=== PATIENT | male | born 2000 | race Two or more races ===

== ENCOUNTER 2024-06-02 13:06 | Emergency (ER) | payer MEDICAID, SELFPAY ==
[2024-06-02 13:07] VITALS: BMI 39.0
[2024-06-02 13:37] VITALS: BP 172/102; PULSE 98; RESP 18; TEMP 36.8; O2SAT 99
--- NOTE | 2024-06-02 13:38 | XR_ITS ---
Examination: Abdomen sonogram, Limited Date and time of exam: June 02, 2024, 1353 hours INDICATIONS: Onset upper abdominal pain beginning 6 hours ago Technique: Real-time mercedes scale transabdominal sonographic images of the upper abdomen obtained. Findings: Negative for gallstones Normal gallbladder wall 0.2 cm Common bile duct 0.3 cm Pancreatic head 2.9 cm Hepatomegaly 21 cm fatty infiltration Normal hepatopedal portal venous flow. Patent IVC IMPRESSION: Negative for cholelithiasis, negative for cholecystitis Normal common bile duct Moderate hepatomegaly fatty liver
[2024-06-02 14:12] LABS: Basophils % (Auto) 0 % (0-2.5); Eosinophils # (Auto) 0.2 Thou/mm3 (0.0-0.5); Eosinophils % (Auto) 2 % (0-10); Hematocrit 45.3 % (41.0-53.0); Hemoglobin 17.1 g/dL (13.5-16.0); Immature Granulocytes % (Auto) 1 % (0-0); Immature Granulocytes Auto 0.09 Thou/mm3 (0.00-0.00); Lymphocytes # (Auto) 2.7 Thou/mm3 (1.0-4.8); Lymphocytes % (Auto) 20 % (10-50); Mean Corpuscular HGB Conc 37.7 g/dl (31.0-37.0); Mean Corpuscular Hemoglobin 31.1 pg (25.0-35.0); Mean Corpuscular Volume 83 fL (80-100); Monocytes % (Auto) 7 % (0-12); Neutrophils # (Auto) 9.8 Thou/mm3 (1.8-7.7); Neutrophils % (Auto) 71 % (37-80); Nucleated Red Blood Cell % 0 /100 WBC (0); Platelet Count 274 Thou/mm3 (140-440); RDW Standard Deviation 36.6 fL (35.1-43.9); Red Blood Count 5.49 Miln/mm3 (4.50-5.90); White Blood Count 13.9 Thou/mm3 (3.8-10.6)
[2024-06-02 14:45] LABS: Alanine Aminotransferase 41 U/L (10-49); Albumin, Serum 4.1 gm/dL (3.5-5.0); Alkaline Phosphatase 109 U/L (46-116); Anion Gap 8 (7-16); Aspartate Amino Transferase 53 U/L (0-34); BUN/Creatinine Ratio 8 Ratio (12-20); Bilirubin,Total 0.6 mg/dL (0.3-1.2); Blood Urea Nitrogen 9 mg/dL (9-23); Carbon Dioxide 25.2 mMol/L (20.0-31.0); Chloride 94 mMol/L (98-107); Creatinine (Component) 1.1 mg/dL (0.6-1.3); Estimated Creatinine Clearance 139.4 mL/min (>60); Globulin 2.1 gm/dL (2.3-3.5); Lipase 138 U/L (12-53); Osmolality,Calculated 277 (275-295); Potassium 4.7 mMol/L (3.4-5.1); Sodium 127 mMol/L (136-145); Total Protein 6.2 gm/dL (5.7-8.2); eGFR > 60 See Note
[2024-06-02 14:46] LABS: Collection Type, Urine Clean Catch
[2024-06-02 14:48] LABS: Glucose 526 mg/dL (74-106)
--- NOTE | 2024-06-02 14:54 | PC.NURSE ---
CALL FROM [facility] IN LAB W/ A CRITICAL GLUCOSE OF 526. PROVIDER INFORMED.
--- NOTE | 2024-06-02 14:57 | PD.EDRME ---
Rapid Medical Screening Exam RME Arrival date/time: 06/02/24 13:06 23-year-old male presents emergency department today for complaints of upper abdominal pain Chief Complaint: Abdominal Pain Time Seen by Provider: 06/02/24 13:18 Vital signs: Vital Signs Temperature 98.3 F 06/02/24 13:37 Pulse Rate 98 06/02/24 13:37 Respiratory Rate 18 06/02/24 13:37 Blood Pressure 172/102 H 06/02/24 13:37 Pulse Oximetry (%) 99 06/02/24 13:37 Oxygen Delivery Method Room Air 06/02/24 13:37
[2024-06-02 15:00] LABS: Bilirubin,Urine Negative (Negative); Blood,Urine Negative (Negative); Budding Yeast,Urine Present; Clarity,Urine Clear (Clear/Hazy); Color,Urine Lt-Yellow (Lt Yel-Yel); Culture Indicated,Urine Not Indicated; Glucose, Urine 4+ (Negative); Hyphae Yeast Present; Ketones,Urine Negative (Negative); Nitrite,Urine Negative (Negative); PH,Urine 6.5 (5.0-7.0); Protein,Urine 2+ (Neg - Trace); RBC,Urine 2 /hpf (0-3); Specific Gravity,Urine 1.038 (1.001-1.035); Squamous Epithelial Cell,Urine 1 /hpf (0-5); Urobilinogen,Urine Negative mg/dL (0.0-1.0); WBC,Urine 1 /hpf (0-5)
[2024-06-02 15:01] LABS: Leukocyte Esterase,Urine Negative (Negative)
--- NOTE | 2024-06-02 16:18 | PD.EDRME ---
Rapid Medical Screening Exam RME Arrival date/time: 06/02/24 13:06 06/02/24 13:06 23-year-old male presents emergency department today for complaints of upper abdominal pain Chief Complaint: Abdominal Pain Time Seen by Provider: 06/02/24 13:18 Vital signs: Vital Signs Temperature 98.3 F 06/02/24 13:37 Pulse Rate 98 06/02/24 13:37 Respiratory Rate 18 06/02/24 13:37 Blood Pressure 172/102 H 06/02/24 13:37 Pulse Oximetry (%) 99 06/02/24 13:37 Oxygen Delivery Method Room Air 06/02/24 13:37 RME Narrative: 06/02/24 13:06 23-year-old male presents emergency department today for complaints of upper abdominal pain
[2024-06-02] MEDS: SODIUM CHLORIDE 0.9% 1000 ML 1,000 ML 999 ML IV ×2 (16:24)
--- NOTE | 2024-06-02 16:26 | PD.EDABDPN ---
ED Abdominal Pain RME/HPI General Chief Complaint: Abdominal Pain Stated complaint: UPPER ABD PAIN SINCE 8AM TODAY Time seen by provider: 06/02/24 13:18 Arrival date/time: 06/02/24 13:06 RME / HPI RME / HPI narrative: 06/02/24 13:06 23-year-old male presents emergency department today for complaints of upper abdominal pain DR. BASHIR MAIN ED EVALUATION: 23 year old male with past medical history significant for diabetes, noncompliance presents to the Emergency Department accompanied by his girlfriend with complaint of upper abdominal pain with radiation to bilateral sides/ flanks onset this morning. No nausea or vomiting. No other symptoms reported at this time. Patient also has elevated blood glucose here and mentioned he has been noncompliant with his diabetic medication because its $600+ and he cannot afford it. Related Data Previous Rx's ?Medication ?Instructions ?Recorded albuterol sulfate 90 mcg/actuation 2 puff inhalation QID PRN 03/03/19 aerosol inhaler shortness of breath or wheezing #18 grams cetirizine 10 mg capsule (Zyrtec) 10 mg PO QDAY PRN allergy symptoms 03/03/19 #30 caps sodium chloride 0.65 % nasal spray 2 spray intranasal QID #60 mL 03/03/19 aerosol (Saline Nasal) albuterol sulfate 90 mcg/actuation 2 puff inhalation QID #18 grams 04/22/19 aerosol inhaler cetirizine 10 mg tablet (Zyrtec) 10 mg PO QDAY #30 tabs 04/22/19 sodium chloride 0.65 % nasal spray 2 spray intranasal QID #60 mL 04/22/19 aerosol (Saline Nasal) ibuprofen 800 mg tablet 800 mg PO TID PRN pain #30 tabs 12/22/22 metformin 500 mg tablet 500 mg PO BID #60 tabs 06/02/24 Allergies Allergy/AdvReac Type Severity Reaction Status Date / Time No Known Allergies Allergy Verified 06/02/24 13:09 Review of Systems Review of Systems Systems Reviewed: All systems reviewed, normal except as documented Past Medical History Past Medical History ENDOCRINE: Positive Diabetes Mellitus Type 2 Social History SMOKING STATUS: Never smoker SUBSTANCE USE: does not use ALCOHOL: Never ED Exam Narrative Physical exam: GENERAL APPEARANCE: alert and oriented x 4, well-developed, well-nourished, no acute distress, obese VITALS: All vitals were reviewed and the pulse ox is 95% on room air, which is normal according to my interpretation. HEENT: Normocephalic, atraumatic; pupils equal, round, reactive to light; EOMI; mucous membranes pink, moist; oropharynx clear NECK: Supple LUNGS: CTABL; no wheezes, no rales, no rhonchi HEART: Regular rate, regular rhythm; normal S1, S2; no murmurs ABDOMEN: normal BS; there is mild epigastric tenderness but no guarding, no rebound; no masses, no organomegaly, no hernia BACK: no CVA tenderness EXTREMITIES: atraumatic; no edema NEUROLOGIC: awake; alert and oriented x4; cranial nerves II-XII grossly intact; no focal sensory or motor deficits PSYCHIATRIC: appropriate mood and affect SKIN: warm, dry, normal color; papular rash with central depression consistent with molluscum Course Quality Measures none Orders Category Date Time Status Bedside Blood Glucose NOW Care 06/02/24 17:03 Active Insert IV NOW Care 06/02/24 16:23 Active US gall bladder Stat Exams 06/02/24 13:38 Completed A1C [Glycohemoglobin w (eAG)] Stat Lab 06/02/24 14:03 Completed CBC Stat Lab 06/02/24 14:03 Completed Comprehensive Metabolic Panel Stat Lab 06/02/24 14:03 Completed Lipase Stat Lab 06/02/24 14:03 Completed UA, C/S IF [Urinalysis, C/S if Indicated] Stat Lab 06/02/24 14:30 Completed Insulin Regular Med 06/02/24 17:17 Discontinued 5 unit IV X1 ONE Sodium Chloride 0.9% 1000 ml [Ns] 1,000 ml Med 06/02/24 16:01 Discontinued IV 999 mls/hr Sodium Chloride 0.9% 1000 ml [Ns] 1,000 ml Med 06/02/24 16:04 Discontinued IV 999 mls/hr Vital Signs Vital signs: Vital Signs Temperature 98.3 F 06/02/24 13:37 Pulse Rate 98 06/02/24 13:37 Respiratory Rate 18 06/02/24 13:37 Blood Pressure 172/102 H 06/02/24 13:37 Pulse Oximetry (%) 99 06/02/24 13:37 Oxygen Delivery Method Room Air 06/02/24 13:37 Abdominal Pain MDM MDM Narrative MDM Narrative:: I, Emily Romano, araceli scribing for and in the presence of Dr. Bashir. Patient data External records reviewed:: [facility] previous records (Reviewed last ED visit dated 12/22/22, discharged with the following: Hand pain, right) Clinical information provided by:: patient Social determinants that could affect healthcare access:: none Patient has the following chronic illnesses:: diabetes, noncompliance How is presenting disease/condition affected by chronic disease/condition?: exacerbated by Evaluation data The following diagnostics were reviewed and interpreted by me:: lab results and radiology exam(s) Lab and/or radiology exams considered but not ordered:: none Interpretation Summary: Procedure(s): US gall bladder Accession Number(s): [id number] cc: Dre Pritchard PA-C; Aldo (GERRY),Eddie GARRETT; Torin Luna MD~ Examination: Abdomen sonogram, Limited Date and time of exam: June 02, 2024, 1353 hours INDICATIONS: Onset upper abdominal pain beginning 6 hours ago Technique: Real-time mercedes scale transabdominal sonographic images of the upper abdomen obtained. Findings: Negative for gallstones Normal gallbladder wall 0.2 cm Common bile duct 0.3 cm Pancreatic head 2.9 cm Hepatomegaly 21 cm fatty infiltration Normal hepatopedal portal venous flow. Patent IVC IMPRESSION: Negative for cholelithiasis, negative for cholecystitis Normal common bile duct Moderate hepatomegaly fatty liver Dictated By: Torin Luna MD Medications / Prescriptions Medications or Prescriptions considered but not ordered:: none Medication administrations:: Medication Administration History Discontinued Medications Sodium Chloride (Ns) 1,000 mls @ 999 mls/hr IV .Q1H1M ONE Stop: 06/02/24 17:01 Last Infusion: 06/02/24 17:20 Dose: Infused Documented By: Admin: 06/02/24 16:24 Dose: 999 mls/hr Documented By: JASPER Sodium Chloride (Ns) 1,000 mls @ 999 mls/hr IV .Q1H1M ONE Stop: 06/02/24 17:04 Last Infusion: 06/02/24 17:20 Dose: Infused Documented By: Admin: 06/02/24 16:24 Dose: 999 mls/hr Documented By: JASPER Insulin Human Regular (Insulin Hum Regular 1 Unit/0.01 Ml (Per Unit)) 5 unit IV X1 ONE Stop: 06/02/24 17:18 Last Admin: 06/02/24 17:25 Dose: 5 unit Documented By: DB Co-signed By: DO see above Consultations Consultation(s) initiated? (list below): No Diagnosis Differential diagnosis abdominal pain: abdominal pain, calculus of kidney, constipation and other (gallbladder disease, hyperglycemia) Most likely diagnosis given after review of the tests above:: Hyperglycemia Abdominal pain Elevated lipase Molluscum contagiosum Diabetes Noncompliance with diabetes treatment Admission Indicated Admission indicated?: not indicated Admission Request Was there a request for admission?: No Disposition Plan Disposition Plan: Discharge Discharge Attestation Discharge Attestation: The patient and all family members were given an opportunity to ask questions and understood the discharge instructions. Discharge instructions specifically effects, indications for sooner follow up or return to the emergency department, and the expected course of current diagnosis. Patient condition: Stable Discharge Plan Plan Patient Disposition: HOME (Self Care) Prescriptions/Referrals Prescriptions/Med Rec: New metformin 500 mg tablet 500 mg PO BID Qty: 60 0RF No Action albuterol sulfate 90 mcg/actuation HFA aerosol inhaler 2 puff INH QID PRN (Reason: shortness of breath or wheezing) Qty: 18 0RF Zyrtec 10 mg capsule 10 mg PO QDAY PRN (Reason: allergy symptoms) Qty: 30 0RF sodium chloride [Saline Nasal] 0.65 % aerosol,spray 2 spray INTRANASAL QID Qty: 60 0RF albuterol sulfate 90 mcg/actuation HFA aerosol inhaler 2 puff INH QID Qty: 18 0RF sodium chloride [Saline Nasal] 0.65 % aerosol,spray 2 spray INTRANASAL QID Qty: 60 0RF cetirizine [Zyrtec] 10 mg tablet 10 mg PO QDAY Qty: 30 0RF ibuprofen 800 mg tablet 800 mg PO TID PRN (Reason: pain) Qty: 30 0RF Referrals: Dre Pritchard PA-C [Primary Care Provider] - In 1 week Problem List Clinical Impression: Hyperglycemia, Abdominal pain, Elevated lipase, Molluscum contagiosum, Diabetes, Noncompliance with diabetes treatment Patient/Caregiver Discharge Instructions Education Materials: Diabetes Exercise Get Started, ED Diabetes- Overview, ED Molluscum Contagiosum (Adult) Print Language: Panamanian Stand Alone Forms: Melinda Award Info., Patient Portal Info Letter
[2024-06-02 16:36] VITALS: BP 156/100; PULSE 93; RESP 18; TEMP 37.1; O2SAT 95
[2024-06-02 16:40] LABS: Glucose Estimated Average 301 mg/dL (80-131); Hemoglobin A1C 12.1 % Hgb (4.8-6.0)
[2024-06-02] MEDS: INSULIN HUM REGULAR 1 UNIT/0.01 ML (PER UNIT) 5 UNIT IV (17:25)
[2024-06-02 18:01] VITALS: BP 156/98; PULSE 77; RESP 18; TEMP 36.7; O2SAT 99
== END 2024-06-02 18:02 | disposition home or self-care (01) ==
PROVIDERS: Nurse Practitioner Primary Care; Emergency Provider Emergency Medicine; PCP Family Medicine
DX: E11.65 Type 2 diabetes mellitus with hyperglycemia (principal); B08.1 Molluscum contagiosum; K76.0 Fatty (change of) liver, not elsewhere classified; T38.3X6A Underdosing of insulin and oral hypoglycemic [antidiabetic] drugs, initial encounter; Z91.141 Patient's other noncompliance with medication regimen due to financial hardship; Z79.84 Long term (current) use of oral hypoglycemic drugs
CPT/HCPCS: 36415; 76705; 80053; 81001; 83036; 83690; 85025; 96360; 99284; J1815; J7030